=== PATIENT | male | born 1970 | race Caucasian/White ===

== ENCOUNTER 2019-08-18 01:35 | Emergency (ER) | payer SELFPAY ==
[~2019-08-18] VITALS: Ht 175.3 cm; Wt 65.8 kg
[2019-08-18 01:50] VITALS: BP 125/89
--- NOTE | 2019-08-18 02:01 | NUR ---
Patient discharged with v/s stable. Written and verbal after care instructions given and explained. Patient verbalized understanding.PT WAS Ambulatory with [place] [employer] in custody. All questions addressed prior to discharge. Advised to follow up with PMD. DR. HILTON ASSESSED AND DISCHARGED PT
[2019-08-18 02:02] VITALS: BP 125/89
== END 2019-08-18 02:00 ==
LOC: MED 01:35
DX: Z00.00 Encounter for general adult medical examination without abnormal findings (principal)
CPT/HCPCS: 99283